=== PATIENT | female | born 2000 | race American Indian/Alaskan Native ===

== ENCOUNTER 2018-05-01 22:29 | Emergency (ER) | payer OTHER ==
[~2018-05-01] VITALS: Ht 154.9 cm; Wt 54.4 kg
[2018-05-01 23:09] VITALS: BP 127/85
== END 2018-05-01 23:11 | disposition home or self-care (01) ==
LOC: M.ERS 22:29
DX: S01.01XA Laceration without foreign body of scalp, initial encounter (principal); W18.09XA Striking against other object with subsequent fall, initial encounter; Y93.89 Activity, other specified; Y92.89 Other specified places as the place of occurrence of the external cause; Y99.8 Other external cause status

== ENCOUNTER 2018-05-08 17:42 | Emergency (ER) | payer OTHER ==
[~2018-05-08] VITALS: Ht 154.9 cm; Wt 54.4 kg
[2018-05-08 17:49] VITALS: BP 137/75
== END 2018-05-08 18:03 | disposition home or self-care (01) ==
LOC: M.ERS 17:42
DX: S01.01XD Laceration without foreign body of scalp, subsequent encounter (principal); W22.8XXD Striking against or struck by other objects, subsequent encounter